=== PATIENT | male | born 1950 | race Caucasian/White ===

== ENCOUNTER 2021-06-30 10:53 | Day surgery (SDC) | payer OTHER, SELFPAY ==
[~2021-06-30] VITALS: Ht 180.3 cm; Wt 86.2 kg
[2021-06-30] MEDS ORDERED: LIDOCAINE 2% 100 MG/5 ML UJET TP ONE ×2 (12:16→12:33)
[2021-06-30] MEDS ORDERED: fentaNYL citrate 0.05 MG/ML VIAL ONE (12:16)
[2021-06-30] MEDS ORDERED: MIDAZOLAM 5 MG/5 ML VIAL ONE (12:16)
[2021-06-30] MEDS ORDERED: diphenhydrAMINE 50 MG/ML VIAL ONE (12:16)
[2021-06-30] MEDS ORDERED: fentaNYL citrate 0.05 MG/ML VIAL IVP ONE (16:20)
[2021-06-30] MEDS ORDERED: MIDAZOLAM 2 MG/2 ML VIAL IVP ONE (16:20)
== END 2021-06-30 14:05 | disposition home or self-care (01) ==
LOC: MDS 10:53 → MMU 10:55 → MDS 14:05
PROVIDERS: ATTEND Internal Medicine Gastroenterology
DX: D50.9 Iron deficiency anemia, unspecified (principal); D12.2 Benign neoplasm of ascending colon; D12.8 Benign neoplasm of rectum; K20.90 Esophagitis, unspecified without bleeding; I10 Essential (primary) hypertension; E11.9 Type 2 diabetes mellitus without complications; Z79.01 Long term (current) use of anticoagulants; Z79.899 Other long term (current) drug therapy; Z20.822 Contact with and (suspected) exposure to COVID-19
CPT/HCPCS: 43239; 45385; 87426; 88305; 88312; 88313; 88342; J2250; J3010; J1200